=== PATIENT | male | born 1950 | race Caucasian/White ===

== ENCOUNTER → 2020-05-30 | Outpatient (CLI) | payer MEDICARE ==
[~2020-05-30] MED LIST: NAPROSYN500 MG PO
== END ==
LOC: KOH-I 08:27
DX: Z12.2 Encounter for screening for malignant neoplasm of respiratory organs (principal); Z87.891 Personal history of nicotine dependence
CPT/HCPCS: 71271

== ENCOUNTER → 2021-07-04 | Outpatient (CLI) | payer MEDICARE | LOC: KOH-I 13:24 | DX: Z87.891 Personal history of nicotine dependence (principal) | CPT/HCPCS: 71271 ==

== ENCOUNTER → 2022-01-08 | Outpatient (CLI) | payer MEDICARE | LOC: EROP 05:52 | DX: U07.1 COVID-19 (principal); Z23 Encounter for immunization | CPT/HCPCS: M0222; Q0222 ==